=== PATIENT | male | born 1990 | race Caucasian/White ===

== ENCOUNTER 2018-08-11 17:47 | Emergency (ER) | payer MEDICAID ==
[~2018-08-11] VITALS: Ht 172.7 cm; Wt 77.1 kg
[2018-08-11 18:03] VITALS: BP 135/78
--- NOTE | 2018-08-11 18:07 | NUR ---
PT TO LOBBY AT THIS TIME
--- NOTE | 2018-08-11 18:24 | NUR ---
PT AMBULATES TO BED 7
--- NOTE | 2018-08-11 18:36 | NUR ---
28 Y/O M W/C/O GEN WEAKNESS. PT STATES, "I POSSIBLY HAVE LOW B/P SINCE 5 PM." PT B/P WNL AT THIS TIME. PT STATES 3 EPISODES OF N/V. SKIN IS INTACT, PINK/WARM/DRY; AAOX4, PERRL, WITH EVEN AND STEADY GAIT; LUNGS CLEAR BL, BREATHING UNLABORED; HR EVEN AND REGULAR, BL PERIPHERAL PULSES PRESENT; BS ACTIVE X4, NO TENDERNESS TO PALPATION, NO HEPATOSPLENOMEGALLY PALPATED, RESONANT TO PERCUSSION; PT DENIES ANY FEVER, CP, SOB, OR COUGH AT THIS TIME; PT STATES 0/10 PAIN AT THIS TIME; VSS; PATIENT POSITIONED FOR COMFORT; HOB ELEVATED; BEDRAILS UP X2; BED DOWN. NO HX NO RX NKA
--- NOTE | 2018-08-11 18:53 | NUR ---
PT RESTING IN BED WITH FAMILY AY BEDSIDE
[2018-08-11] MEDS ORDERED: KETOROLAC 30 MG/ML VIAL IM ONE (19:45)
[2018-08-11 20:24] VITALS: BP 133/75
== END 2018-08-11 20:25 | disposition home or self-care (01) ==
LOC: MED 17:47
DX: R51 Headache (principal); E11.9 Type 2 diabetes mellitus without complications; I10 Essential (primary) hypertension
CPT/HCPCS: 96372; 99283; J1885

== ENCOUNTER 2021-08-28 11:17 | Emergency (ER) | payer MEDICAID, OTHER ==
[~2021-08-28] VITALS: Ht 167.6 cm; Wt 81.6 kg
[2021-08-28 11:34] VITALS: BP 146/79
--- NOTE | 2021-08-28 12:10 | NUR ---
PATIENT PRESENTS TO ED WITH PAINFUL BUMP ON L CHEST. PT STATES HISTORY OF BUMP, DIAGNOSED CYST 2 YEARS AGO. SYMPTOMS ONSET 3 DAYS AGO, BUMPED DUSTIN CABINET. DENIES N/V/D; SKIN SITE IS RED/HOT/DRY; AAOX4 WITH EVEN AND STEADY GAIT; LUNGS CLEAR BL; HR EVEN AND REGULAR; PT DENIES ANY FEVER, CP, SOB, OR COUGH AT THIS TIME; PATIENT STATES PAIN OF 6/10 AT THIS TIME; VSS; PATIENT POSITIONED FOR COMFORT; HOB ELEVATED; BEDRAILS UP X2; BED DOWN. ER MD MADE AWARE OF PT STATUS. PMH: DENIES MEDS: NONE ALLERGIES: NKA
[2021-08-28] MEDS ORDERED: LIDOCAINE MPF 1% 10 MG/ML VIAL INJ ONE ×2 (12:25→12:30)
[2021-08-28] MEDS ORDERED: AMOX-1000 PO (12:48)
[2021-08-28] MEDS ORDERED: BACITRACIN OINT 500 UNITS/GM PKT TP ONE (13:10)
[2021-08-28 13:13] VITALS: BP 146/79
== END 2021-08-28 13:10 | disposition home or self-care (01) ==
LOC: MED 11:17
DX: N61.1 Abscess of the breast and nipple (principal); Z79.2 Long term (current) use of antibiotics
CPT/HCPCS: 10160; 99284; J2001

== ENCOUNTER 2021-09-11 10:14 | Emergency (ER) | payer OTHER ==
[~2021-09-11] VITALS: Ht 172.7 cm; Wt 83.5 kg
[~2021-09-11 10:14] MED LIST: AMOX-1000 PO
[2021-09-11 10:20] VITALS: BP 132/50
--- NOTE | 2021-09-11 10:29 | NUR ---
PT TO AWAIT IN LOBBY
--- NOTE | 2021-09-11 10:46 | NUR ---
PT AMBULATED TO BED, STEADY GAIT
--- NOTE | 2021-09-11 11:05 | NUR ---
31/M BIB SELF WITH C/O ABDOMINAL PAIN SINCE LAST NIGHT. PATIENT STATES PAIN CAME ON SUDDENLY, STATING HE HAS BEEN HAVING EPISODES OF N/V/D ASSOCIATED WITH PAIN. DENIES TAKING ANYTHING AT HOME PRIOR TO ARRIVAL TO ED. REPORTS 8/10, INTERMITTENT SHARP PAIN THAT IS NONRADIATING, REPORTS HE FEELS A BURNING EPIGASTRIC PAIN RADIATING UP. PATIENT DENIES SOB, FEVER OR CHILLS.
[2021-09-11] MEDS ORDERED: DIPHENOXYLATE /ATROPINE 2.5 MG TAB PO ONE (12:00)
[2021-09-11] MEDS ORDERED: ONDANSETRON 4 MG/2 ML VIAL IVP ONE (12:00)
[2021-09-11] MEDS ORDERED: NACL 0.9% 1,000 ML IV ONE (12:00)
--- NOTE | 2021-09-11 12:20 | NUR ---
20 IV ESTABLISHED TO LEFT AC, LABS DRAWN AND WALKED TO LAB.
[2021-09-11 12:47] LABS: BASOPHILS % (AUTO) 0.3 % (0.0-2.0); EOSINOPHILS % (AUTO) 0.1 % (0.0-4.0); HEMATOCRIT 47.4 % (36-52); HEMOGLOBIN 16.3 g/dL (12.0-18.0); LYMPHOCYTES # (AUTO) 0.4 K/uL (2.0-11.5); LYMPHOCYTES % (AUTO) 2.6 % (20.5-51.1); MEAN CORPUSCULAR HEMOGLOBIN 30 pg (27-31); MEAN CORPUSCULAR HGB CONC 34 g/dL (33-37); MEAN CORPUSCULAR VOLUME 88.2 fL (80-94); MONOCYTES # (AUTO) 0.5 K/uL (0.8-1.0); MONOCYTES % (AUTO) 3.2 % (1.7-9.3); NEUTROPHILS # (AUTO) 13.3 K/uL (1.8-7.7); NEUTROPHILS % (AUTO) 93.8 % (42.2-75.2); PLATELET COUNT (AUTO) 273 K/uL (140-450); RED BLOOD CELL COUNT(AUTO) 5.37 MIL/uL (4.20-6.10); RED CELL DISTRIBUTION WIDTH 13.6 % (11.6-13.7); WHITE BLOOD COUNT (AUTO) 14.1 K/uL (4.8-10.8)
[2021-09-11 12:58] LABS: ALBUMIN 3.7 g/dL (3.4-5.0); ANION GAP 11.9 (8-16); CARBON DIOXIDE 27.8 mmol/L (21-32); CREATININE 0.9 mg/dL (0.6-1.3); POTASSIUM 3.7 mmol/L (3.5-5.1); TOTAL BILIRUBIN 0.5 mg/dL (0.0-1.0)
[2021-09-11] MEDS ORDERED: ATRO1TAB PO (13:37)
[2021-09-11] MEDS ORDERED: ONDA-188 SL (13:37)
[2021-09-11 13:48] VITALS: BP 122/74
--- NOTE | 2021-09-11 13:48 | NUR ---
Patient discharged with v/s stable. Written and verbal after care instructions given and explained. Patient alert, oriented and verbalized understanding of instructions. Ambulatory with steady gait. All questions addressed prior to discharge. ID band removed. Patient advised to follow up with PMD. Rx of Lomitil and Zofran ODT given. Patient educated on indication of medication including possible reaction and side effects. Opportunity to ask questions provided and answered.
== END 2021-09-11 13:48 | disposition home or self-care (01) ==
LOC: MED 10:14
DX: R19.7 Diarrhea, unspecified (principal); R11.2 Nausea with vomiting, unspecified; F17.200 Nicotine dependence, unspecified, uncomplicated; Z71.6 Tobacco abuse counseling; Z79.899 Other long term (current) drug therapy; Z79.2 Long term (current) use of antibiotics
CPT/HCPCS: 36415; 80053; 81002; 83690; 85025; 96361; 96374; 99283; J2405; J7030

== ENCOUNTER 2023-06-10 10:32 | Emergency (ER) | payer OTHER ==
[~2023-06-10] VITALS: Ht 175.3 cm; Wt 81.6 kg
[~2023-06-10 10:32] MED LIST changes: +ATRO1TAB PO; +ONDA-188 SL
[2023-06-10 10:36] VITALS: BP 135/72; PULSE 83; RESP 18; TEMP 98.1; O2SAT 98
[2023-06-10] MEDS ORDERED: IBUP-1842 PO (11:03)
[2023-06-10] MEDS ORDERED: BACITRACIN OINT 500 UNITS/GM PKT TP ONE (12:15)
[2023-06-10] MEDS ORDERED: BACTO TP (12:20)
[2023-06-10] MEDS ORDERED: AMOX1TAB8 PO (12:20)
[2023-06-10 12:48] VITALS: BP 128/79; PULSE 74; RESP 17; O2SAT 98
== END 2023-06-10 12:48 | disposition home or self-care (01) ==
LOC: MED 10:32
DX: L02.416 Cutaneous abscess of left lower limb (principal); Z79.899 Other long term (current) drug therapy
CPT/HCPCS: 99284